=== PATIENT | female | born 1990 | race Two or more races ===

== ENCOUNTER 2020-08-21 07:21 | Emergency (ER) | payer MEDICAID, OTHER ==
[~2020-08-21] VITALS: Ht 152.4 cm; Wt 58.5 kg
[2020-08-21 07:21] VITALS: BP_SYST 134
[~2020-08-21 07:21] MED LIST: BIRTH CONTROL PILLS
--- NOTE | 2020-08-21 07:21 | NUR ---
BROUGHT BACK TO BED #6 AND TRIAGED. REPORT GIVEN TO DALY
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
--- NOTE | 2020-08-21 07:30 | NUR ---
DR LANDRY AT BEDSIDE FOR EVALUATION
--- NOTE | 2020-08-21 07:40 | NUR ---
SMALL PUNCTURE WOUND CLEANED WITH NORMAL SALINE AND BACITRACIN APPLIED. DRESSING PLACED, PT TOLERATED IT WELL. INSTRUCTED PT ON HOW TO CLEAN WOUND AND GIVEN SUPPLIES.
[2020-08-21] MEDS ORDERED: BACITRACIN 1 GM OINT TP ONE ×2 (07:41→07:45)
[2020-08-21 07:56] VITALS: BP_SYST 127
--- NOTE | 2020-08-21 07:57 | NUR ---
Patient given written and verbal discharge instructions and verbalizes understanding. ER MD discussed with patient the results and treatment provided. Patient in stable condition. ID arm band removed. Rx of AUGMENTIN given. Patient educated on pain management and to follow up with PMD. Pain Scale 0/10. Opportunity for questions provided and answered. Medication side effect fact sheet provided.
[2020-08-21] MEDS ORDERED: IBUPROFEN 600 MG TABLET PO ONE (08:00)
== END 2020-08-21 07:56 | disposition home or self-care (01) ==
LOC: SED 07:21
DX: S61.452A Open bite of left hand, initial encounter (principal); W54.0XXA Bitten by dog, initial encounter; Y93.89 Activity, other specified; Y92.89 Other specified places as the place of occurrence of the external cause; Y99.8 Other external cause status
CPT/HCPCS: 99283

== ENCOUNTER 2020-09-13 07:26 | Emergency (ER) | payer OTHER ==
[~2020-09-13] VITALS: Ht 152.4 cm; Wt 59.0 kg
[2020-09-13 07:28] VITALS: BP_SYST 120
--- NOTE | 2020-09-13 07:31 | NUR ---
Patient triaged and placed in waiting room. VSS and patient appears in no acute distress at this time. Awaiting available bed, and MD notified of need for MSE.
--- NOTE | 2020-09-13 07:32 | NUR ---
Patient came from home for evaluation of heavy vaginal bleeding with clots since last night. Patient denies nausea,vomiting,diarrhea and pain.
--- NOTE | 2020-09-13 07:40 | NUR ---
YELITZA Bonds in tent examining patient.
--- NOTE | 2020-09-13 07:48 | NUR ---
Patient to ER fast track 1 for evaluation. Side rails up.
--- NOTE | 2020-09-13 07:48 | NUR ---
Note buddy in ED - 09/13/20 at 0801 by KIMBERLEE Patient to Y[facility] granados for evaluation. Side rails up.
[2020-09-13 09:15] LABS: BASOPHILS % (AUTO) 0.3 % (0.0-2.0); EOSINOPHILS % (AUTO) 0.1 % (0.0-4.0); HEMATOCRIT 40.8 % (36-48); HEMOGLOBIN 13.8 g/dL (12.0-16.0); LYMPHOCYTES # (AUTO) 1.1 K/uL (1.0-5.5); LYMPHOCYTES % (AUTO) 21.8 % (20.5-51.5); MEAN CORPUSCULAR HEMOGLOBIN 30 pg (27-31); MEAN CORPUSCULAR HGB CONC 34 % (32-36); MEAN CORPUSCULAR VOLUME 90 fL (79.0-98.0); MONOCYTES # (AUTO) 0.2 K/uL (0.0-1.0); MONOCYTES % (AUTO) 4.4 % (1.7-9.3); NEUTROPHILS # (AUTO) 3.8 K/uL (1.8-7.7); NEUTROPHILS % (AUTO) 73.4 % (40.0-70.0); PLATELET COUNT (AUTO) 300 K/uL (130-430); RED BLOOD CELL COUNT(AUTO) 4.56 MIL/uL (4.2-6.2); RED CELL DISTRIBUTION WIDTH 12.7 % (9.0-15.0); WHITE BLOOD COUNT (AUTO) 5.2 K/uL (4.8-10.8)
[2020-09-13 09:23] LABS: INR 0.9 (0.8-1.2); PROTHROMBIN TIME 9.6 SECS (9.5-12.5)
--- NOTE | 2020-09-13 10:33 | NUR ---
Patient given written and verbal discharge instructions and verbalizes understanding. ER MD discussed with patient the results and treatment provided. Patient in stable condition. ID arm band removed. Patient educated on pain management and to follow up with PMD. Pain Scale 0/10. Opportunity for questions provided and answered. Medication side effect fact sheet provided.
[2020-09-13 10:34] VITALS: BP_SYST 118
== END 2020-09-13 10:33 | disposition home or self-care (01) ==
LOC: SED 07:26
DX: N93.9 Abnormal uterine and vaginal bleeding, unspecified (principal)
CPT/HCPCS: 36415; 81002; 81025; 85025; 85610-TC; 99283